=== PATIENT | female | born 1940 | race Caucasian/White ===

== ENCOUNTER 2018-12-11 12:17 | Inpatient (IN) ==
[2018-12-11] MEDS ORDERED: ONDANSETRON 4 MG/2 ML VIAL IV PRN (13:51)
[2018-12-11] MEDS ORDERED: ACETAMINOPHEN 325 MG TABLET PO PRN (13:51)
[2018-12-11 15:31] LABS: Basophils # 0.1 10*3/uL (0.0-0.2); Basophils % 0.8 % (0.0-0.8); Eosinophils # 0.1 10*3/uL (0.0-0.87); Eosinophils % 0.7 % (0.00-10.9); Hematocrit 37.4 VOL% (35.7-47.0); Hemoglobin 11.6 GM/DL (12.0-16.0); Immature Granulocytes % 0.5 %; Immature Granulocytes Absolute 0.04 #; Lymphocytes # 1.4 10*3/uL (1.4-4.0); Lymphocytes % 15.4 % (21.3-54.2); Mean Corpuscular Volume 93.7 FL (87-102); Mean Platelet Volume 9.4 FL (9.6-12.0); Monocytes % 7.1 % (1.7-12.7); Neutrophils % 75.5 % (38.7-73.9); Platelet Count 358 T/CUMM (130-400); Red Blood Count 3.99 MC/CUMM (3.8-5.5); Red Cell Distribution Width 14.8 % (9.3-17.3); White Blood Count 8.8 T/CUMM (4-12)
[2018-12-11] MEDS ORDERED: dilTIAZem Drip 125 MG/125 ML PREMIX IV ONE (15:41)
[2018-12-11 15:51] LABS: Albumin 3.8 G/DL (3.4-5.0); Bilirubin,Total 0.5 MG/DL (0.2-1.0); Calcium 9.1 MG/DL (8.5-10.1)
[2018-12-11] MEDS: SODIUM CHLORIDE 0.9% 1,000 ML IV SCH (16:00)
[2018-12-11] MEDS: dilTIAZem Drip 125 MG/125 ML PREMIX IV SCH (16:00)
[2018-12-11] MEDS ORDERED: FUROSEMIDE 40 MG/4 ML VIAL IV ONE (16:44)
[2018-12-11] MEDS ORDERED: POTASSIUM CHLORIDE 20 MEQ TABLET PO ONE (16:45)
[2018-12-11] MEDS: APIXABAN 5 MG TABLET PO SCH ×2 (17:06→22:19)
[2018-12-11] MEDS: SOTALOL 80 MG TABLET PO SCH ×2 (17:06→22:18)
[2018-12-11 17:50] LABS: Apearance,Urine CLEAR (Clear); Bilirubin,Urine Negative (Negative); Blood, Urine Negative (Negative); Glucose,Urine (UA) Negative (Negative); Ketones,Urine 5 mg/dL (Negative); Mucus,Urine Occasional /LPF (Occasional); Nitrite,Urine Negative (Negative); Protein,Urine Negative; Squamous Epithelial Cell,Urine Occasional /HPF (0-10); Urine Color Straw (Yellow); Urine Specific Gravity 1.008 (1.001-1.035); Urine Urobilinogen < 2.0 EU/DL (0.2-1.0)
[2018-12-11] MEDS ORDERED: METOPROLOL TARTRATE 5 MG/5 ML VIAL IV SCH (18:00)
[2018-12-11] MEDS: POTASSIUM CHLORIDE INJ 20 MEQ in SODIUM CHLORIDE 0.45% 1,000 ML IV SCH ×2 (19:03→21:01)
[2018-12-11] MEDS: DOCUSATE SODIUM 100 MG CAPSULE PO SCH (22:18)
[2018-12-11] MEDS: ASCORBIC ACID 500 MG TABLET PO SCH (22:19)
[2018-12-12] MEDS ORDERED: SODIUM CHLORIDE 0.9% 1,000 ML IV ONE (03:44)
[2018-12-12 04:10] LABS: Basophils # 0.1 10*3/uL (0.0-0.2); Basophils % 0.7 % (0.0-0.8); Eosinophils # 0.2 10*3/uL (0.0-0.87); Hematocrit 31.1 VOL% (35.7-47.0); Hemoglobin 9.9 GM/DL (12.0-16.0); Immature Granulocytes % 0.4 %; Immature Granulocytes Absolute 0.03 #; Lymphocytes # 1.7 10*3/uL (1.4-4.0); Lymphocytes % 22.5 % (21.3-54.2); Mean Corpuscular HGB Conc 31.8 GM/DL (32-36); Mean Corpuscular Volume 92.6 FL (87-102); Mean Platelet Volume 10.2 FL (9.6-12.0); Monocytes % 7.6 % (1.7-12.7); Neutrophils % 66.8 % (38.7-73.9); Platelet Count 285 T/CUMM (130-400); Red Blood Count 3.36 MC/CUMM (3.8-5.5); White Blood Count 7.6 T/CUMM (4-12)
[2018-12-12 04:35] LABS: Calcium 8.4 MG/DL (8.5-10.1)
[2018-12-12 04:36] LABS: Osmolality,Calculated 286.7 MOS/KG (273-304)
[2018-12-12 04:48] LABS: Albumin 2.8 G/DL (3.4-5.0); Bilirubin,Total 0.9 MG/DL (0.2-1.0); Calcium 8.3 MG/DL (8.5-10.1); Osmolality,Calculated 283.8 MOS/KG (273-304); Risk Ratio 3.67; Thyroid Stimulating Hormone 0.902 uIU/ml (0.358-3.74); Total Protein 5.6 G/DL (6.4-8.3); VLDL CHOLESTEROL 16.6 MG/DL
[2018-12-12] MEDS: ASCORBIC ACID 500 MG TABLET PO SCH ×2 (08:49→20:51)
[2018-12-12] MEDS: ASPIRIN CHEW 81 MG TABLET PO SCH (08:49)
[2018-12-12] MEDS: MULTIVITAMIN (BEROCCA) TABLET PO SCH (08:49)
[2018-12-12] MEDS: PANTOPRAZOLE 40 MG TABLET PO SCH (08:49)
[2018-12-12] MEDS: MULTIVITAMIN (CENTRUM) TABLET PO SCH (08:49)
[2018-12-12] MEDS: APIXABAN 5 MG TABLET PO SCH ×2 (08:49→20:51)
[2018-12-12] MEDS: DOCUSATE SODIUM 100 MG CAPSULE PO SCH ×2 (08:49→20:51)
[2018-12-12] MEDS: OMEGA 3 ACID ETHYL ESTERS 1 GM CAPSULE PO SCH (08:49)
[2018-12-12] MEDS ORDERED: ENALAPRIL 10 MG TABLET PO SCH (09:00)
[2018-12-12] MEDS ORDERED: BENAZEPRIL 10 MG TABLET PO SCH (09:00)
[2018-12-12] MEDS ORDERED: FUROSEMIDE 20 MG/2 ML VIAL IV SCH (09:00)
[2018-12-12] MEDS: POTASSIUM CHLORIDE INJ 20 MEQ in SODIUM CHLORIDE 0.45% 1,000 ML IV SCH (10:46)
[2018-12-12] MEDS: SODIUM CHLORIDE 0.9% 1,000 ML IV SCH (10:47)
[2018-12-12] MEDS: dilTIAZem Drip 125 MG/125 ML PREMIX IV SCH (16:03)
[2018-12-12] MEDS: SOTALOL 80 MG TABLET PO SCH (20:51)
[2018-12-12] MEDS ORDERED: SODIUM CHLOR 0.45% KCL 20 MEQ 20 MEQ/1,000 ML BAG IV SCH (21:56)
[2018-12-13 04:39] LABS: Basophils # 0.1 10*3/uL (0.0-0.2); Basophils % 0.7 % (0.0-0.8); Eosinophils # 0.1 10*3/uL (0.0-0.87); Eosinophils % 1.7 % (0.00-10.9); Hematocrit 34.8 VOL% (35.7-47.0); Immature Granulocytes % 0.4 %; Immature Granulocytes Absolute 0.03 #; Lymphocytes # 1.6 10*3/uL (1.4-4.0); Lymphocytes % 19.9 % (21.3-54.2); Mean Corpuscular HGB Conc 31.6 GM/DL (32-36); Mean Corpuscular Volume 92.1 FL (87-102); Mean Platelet Volume 9.5 FL (9.6-12.0); Neutrophils % 69.3 % (38.7-73.9); Platelet Count 298 T/CUMM (130-400); Red Blood Count 3.78 MC/CUMM (3.8-5.5); Red Cell Distribution Width 14.6 % (9.3-17.3); White Blood Count 8.1 T/CUMM (4-12)
[2018-12-13 04:58] LABS: Osmolality,Calculated 284.8 MOS/KG (273-304)
[2018-12-13 05:08] LABS: Albumin 3.3 G/DL (3.4-5.0); Bilirubin,Total 0.8 MG/DL (0.2-1.0); Calcium 8.9 MG/DL (8.5-10.1); Osmolality,Calculated 286.7 MOS/KG (273-304); Total Protein 6.1 G/DL (6.4-8.3)
[2018-12-13 07:52] VITALS: BP 120/74
[2018-12-13] MEDS ORDERED: FUROSEMIDE 20 MG TABLET PO SCH (09:00)
[2018-12-13] MEDS: MULTIVITAMIN (BEROCCA) TABLET PO SCH (09:19)
[2018-12-13] MEDS: SOTALOL 80 MG TABLET PO SCH (09:19)
[2018-12-13] MEDS: PANTOPRAZOLE 40 MG TABLET PO SCH (09:20)
[2018-12-13] MEDS: APIXABAN 5 MG TABLET PO SCH (09:20)
[2018-12-13] MEDS: ASCORBIC ACID 500 MG TABLET PO SCH (09:20)
[2018-12-13] MEDS: ASPIRIN CHEW 81 MG TABLET PO SCH (09:20)
[2018-12-13] MEDS: OMEGA 3 ACID ETHYL ESTERS 1 GM CAPSULE PO SCH (09:20)
[2018-12-13] MEDS: DOCUSATE SODIUM 100 MG CAPSULE PO SCH (09:20)
[2018-12-13] MEDS: MULTIVITAMIN (CENTRUM) TABLET PO SCH (09:20)
== END 2018-12-13 11:10 | disposition home or self-care (01) | DRG 308 ==
LOC: N.SDSINP → N.TELEN 14:51
PROVIDERS: ADMIT Family Medicine; ATTEND Family Medicine

== ENCOUNTER 2020-08-06 11:43 | Inpatient (IN) ==
[2020-08-06] MEDS ORDERED: DILTIAZEM 50 MG/10 ML VIAL IV STA (12:57)
[2020-08-06] MEDS ORDERED: FUROSEMIDE 40 MG/4 ML VIAL IV STA (12:57)
[2020-08-06 13:06] LABS: Basophils # 0.1 10*3/uL (0.0-0.2); Basophils % 0.9 % (0.0-0.8); Eosinophils % 0.1 % (0.00-10.9); Hematocrit 32.1 VOL% (35.7-47.0); Immature Granulocytes % 0.6 %; Immature Granulocytes Absolute 0.05 #; Lymphocytes # 1.2 10*3/uL (1.4-4.0); Lymphocytes % 12.9 % (21.3-54.2); Mean Corpuscular HGB Conc 31.2 GM/DL (32-36); Mean Corpuscular Volume 85.1 FL (87-102); Mean Platelet Volume 11.7 FL (9.6-12.0); Monocytes % 6.3 % (1.7-12.7); Neutrophils % 79.2 % (38.7-73.9); Platelet Count 359 T/CUMM (130-400); Red Blood Count 3.77 MC/CUMM (3.8-5.5); Red Cell Distribution Width 17.8 % (9.3-17.3)
[2020-08-06 13:15] LABS: INR 1.3; PT Patient Result 13.8 SECS (9.8-11.9); Partial Thromboplastin Time 32.3 SECS (23.9-33.8)
[2020-08-06 13:23] LABS: Albumin 3.4 G/DL (3.4-5.0); Bilirubin,Total 0.8 MG/DL (0.2-1.0); Calcium 8.9 MG/DL (8.5-10.1); Osmolality,Calculated 279.4 MOS/KG (273-304); Potassium 3.7 MMOL/L (3.5-5.1); Thyroid Stimulating Hormone 2.77 uIU/ml (0.358-3.74); Total Protein 6.4 G/DL (6.4-8.3)
[2020-08-06] MEDS: DILTIAZEM INJ 100 MG in SODIUM CHLORIDE 0.9% 100 ML IV SCH (14:19)
[2020-08-06 15:28] LABS: Barbiturates Screen,Urine Negative (Negative); Benzodiazepines Screen,Urine Negative (Negative); Cannabinoid Screen,Urine Negative (Negative); Opiate Screen,Urine Negative (Negative); Phencyclidine Screen,Urine Negative (Negative)
[2020-08-06] MEDS ORDERED: ONDANSETRON 4 MG/2 ML VIAL IV PRN (15:44)
[2020-08-06] MEDS ORDERED: ACETAMINOPHEN 325 MG TABLET PO PRN (15:44)
[2020-08-06] MEDS: SOTALOL 80 MG TABLET PO SCH (20:59)
[2020-08-06] MEDS: APIXABAN 5 MG TABLET PO SCH (20:59)
[2020-08-06] MEDS: DOCUSATE SODIUM 100 MG CAPSULE PO SCH (20:59)
[2020-08-07] MEDS: DILTIAZEM INJ 100 MG in SODIUM CHLORIDE 0.9% 100 ML IV SCH (04:21)
[2020-08-07 06:54] LABS: Basophils # 0.1 10*3/uL (0.0-0.2); Basophils % 0.9 % (0.0-0.8); Eosinophils # 0.1 10*3/uL (0.0-0.87); Hematocrit 28.5 VOL% (35.7-47.0); Hemoglobin 8.8 GM/DL (12.0-16.0); Immature Granulocytes % 0.2 %; Immature Granulocytes Absolute 0.02 #; Lymphocytes # 1.2 10*3/uL (1.4-4.0); Lymphocytes % 13.4 % (21.3-54.2); Mean Corpuscular HGB Conc 30.9 GM/DL (32-36); Mean Corpuscular Volume 84.1 FL (87-102); Mean Platelet Volume 11.4 FL (9.6-12.0); Neutrophils % 74.5 % (38.7-73.9); Platelet Count 294 T/CUMM (130-400); Red Blood Count 3.39 MC/CUMM (3.8-5.5); Red Cell Distribution Width 17.7 % (9.3-17.3); White Blood Count 8.9 T/CUMM (4-12)
[2020-08-07 07:23] LABS: Albumin 2.9 G/DL (3.4-5.0); Bilirubin,Total 0.9 MG/DL (0.2-1.0); Calcium 8.5 MG/DL (8.5-10.1); Osmolality,Calculated 282.1 MOS/KG (273-304); Potassium 2.8 MMOL/L (3.5-5.1); Risk Ratio 2.58; Total Protein 5.8 G/DL (6.4-8.3)
[2020-08-07] MEDS: SOTALOL 80 MG TABLET PO SCH (09:25)
[2020-08-07] MEDS: MULTIVITAMIN (BEROCCA) TABLET PO SCH (09:25)
[2020-08-07] MEDS: POTASSIUM CHLORIDE 20 MEQ TABLET PO SCH ×2 (09:25→21:33)
[2020-08-07] MEDS: APIXABAN 5 MG TABLET PO SCH ×2 (09:26→21:33)
[2020-08-07] MEDS: OMEGA 3 ACID ETHYL ESTERS 1 GM CAPSULE PO SCH (09:26)
[2020-08-07] MEDS: DOCUSATE SODIUM 100 MG CAPSULE PO SCH ×2 (09:26→21:34)
[2020-08-07] MEDS: CALCIUM (CARBONATE)/VITAMIN D 600 MG-400 UNIT TABLET PO SCH (09:26)
[2020-08-07] MEDS: ENALAPRIL 20 MG TABLET PO SCH (09:26)
[2020-08-07] MEDS: POTASSIUM CHLORIDE RIDER 10 MEQ in PREMIX 1 EACH IV SCH ×4 (09:26→15:28)
[2020-08-07] MEDS: PANTOPRAZOLE 40 MG TABLET PO SCH (09:26)
[2020-08-07] MEDS: MULTIVITAMIN (CENTRUM) TABLET PO SCH (09:26)
[2020-08-07] MEDS: ALBUTEROL/IPRATROPIUM 3 ML NEB RESP TX SCH ×3 (11:08→19:34)
[2020-08-07] MEDS: FUROSEMIDE 40 MG/4 ML VIAL IV SCH (11:20)
[2020-08-07] MEDS: SERTRALINE 25 MG TABLET PO SCH ×2 (15:10→21:33)
[2020-08-07] MEDS ORDERED: POTASSIUM CHLORIDE RIDER 10 MEQ in PREMIX 1 EACH IV SCH (15:30)
[2020-08-07] MEDS ORDERED: POTASSIUM CHLORIDE 20 MEQ/15 ML UDCUP PO ONE (21:02)
[2020-08-07] MEDS: BISOPROLOL 5 MG TABLET PO SCH (21:41)
[2020-08-07] MEDS: AMIODARONE 200 MG TABLET PO SCH (21:41)
[2020-08-08] MEDS: ALBUTEROL/IPRATROPIUM 3 ML NEB RESP TX SCH ×4 (00:25→19:33)
[2020-08-08 05:59] LABS: Basophils # 0.1 10*3/uL (0.0-0.2); Basophils % 0.9 % (0.0-0.8); Eosinophils % 0.4 % (0.00-10.9); Hematocrit 31.2 VOL% (35.7-47.0); Hemoglobin 9.9 GM/DL (12.0-16.0); Immature Granulocytes % 0.4 %; Immature Granulocytes Absolute 0.04 #; Lymphocytes % 8.6 % (21.3-54.2); Mean Corpuscular HGB Conc 31.7 GM/DL (32-36); Mean Corpuscular Volume 81.9 FL (87-102); Mean Platelet Volume 11.5 FL (9.6-12.0); Monocytes % 8.5 % (1.7-12.7); Neutrophils % 81.2 % (38.7-73.9); Platelet Count 305 T/CUMM (130-400); Red Blood Count 3.81 MC/CUMM (3.8-5.5); Red Cell Distribution Width 17.8 % (9.3-17.3); White Blood Count 11.3 T/CUMM (4-12)
[2020-08-08 06:28] LABS: Albumin 3.2 G/DL (3.4-5.0); Osmolality,Calculated 283.1 MOS/KG (273-304); Potassium 3.8 MMOL/L (3.5-5.1); Total Protein 6.4 G/DL (6.4-8.3)
[2020-08-08] MEDS ORDERED: HALOPERIDOL 5 MG/ML AMP IV ONE ×2 (07:40→09:05)
[2020-08-08] MEDS: AMIODARONE 200 MG TABLET PO SCH ×2 (09:46→21:58)
[2020-08-08] MEDS: APIXABAN 5 MG TABLET PO SCH ×2 (09:46→21:58)
[2020-08-08] MEDS: BISOPROLOL 5 MG TABLET PO SCH ×2 (09:46→21:58)
[2020-08-08] MEDS: ENALAPRIL 20 MG TABLET PO SCH (09:47)
[2020-08-08] MEDS: FUROSEMIDE 40 MG/4 ML VIAL IV SCH (09:47)
[2020-08-08] MEDS: MULTIVITAMIN (BEROCCA) TABLET PO SCH (10:07)
[2020-08-08] MEDS: POTASSIUM CHLORIDE 20 MEQ TABLET PO SCH ×2 (10:08→21:58)
[2020-08-08] MEDS: PANTOPRAZOLE 40 MG TABLET PO SCH (10:08)
[2020-08-08] MEDS: CALCIUM (CARBONATE)/VITAMIN D 600 MG-400 UNIT TABLET PO SCH (10:08)
[2020-08-08] MEDS: DOCUSATE SODIUM 100 MG CAPSULE PO SCH ×2 (10:08→21:58)
[2020-08-08] MEDS ORDERED: BISOPROLOL 5 MG TABLET PO SCH (10:08)
[2020-08-08] MEDS: OMEGA 3 ACID ETHYL ESTERS 1 GM CAPSULE PO SCH (10:08)
[2020-08-08] MEDS: CHOLECALCIFEROL 1,000 UNIT TABLET PO SCH (10:08)
[2020-08-08] MEDS: MULTIVITAMIN (CENTRUM) TABLET PO SCH (10:08)
[2020-08-08] MEDS ORDERED: BISOPROLOL 5 MG TABLET PO ONE (10:08)
[2020-08-08] MEDS: DILTIAZEM INJ 100 MG in SODIUM CHLORIDE 0.9% 100 ML IV SCH (14:59)
[2020-08-09] MEDS: ALBUTEROL/IPRATROPIUM 3 ML NEB RESP TX SCH ×4 (00:25→19:32)
[2020-08-09] MEDS: DILTIAZEM INJ 100 MG in SODIUM CHLORIDE 0.9% 100 ML IV SCH ×2 (04:06→14:09)
[2020-08-09 05:56] LABS: Basophils # 0.1 10*3/uL (0.0-0.2); Basophils % 0.5 % (0.0-0.8); Eosinophils % 0.1 % (0.00-10.9); Hematocrit 30.8 VOL% (35.7-47.0); Hemoglobin 9.5 GM/DL (12.0-16.0); Immature Granulocytes % 0.6 %; Immature Granulocytes Absolute 0.09 #; Lymphocytes # 1.3 10*3/uL (1.4-4.0); Lymphocytes % 8.7 % (21.3-54.2); Mean Corpuscular HGB Conc 30.8 GM/DL (32-36); Mean Corpuscular Volume 82.8 FL (87-102); Mean Platelet Volume 11.6 FL (9.6-12.0); Monocytes % 7.2 % (1.7-12.7); Neutrophils % 82.9 % (38.7-73.9); Platelet Count 313 T/CUMM (130-400); Red Blood Count 3.72 MC/CUMM (3.8-5.5); Red Cell Distribution Width 17.7 % (9.3-17.3); White Blood Count 15.1 T/CUMM (4-12)
[2020-08-09 06:29] LABS: Calcium 8.7 MG/DL (8.5-10.1); Osmolality,Calculated 273.8 MOS/KG (273-304); Potassium 3.3 MMOL/L (3.5-5.1)
[2020-08-09] MEDS: DOCUSATE SODIUM 100 MG CAPSULE PO SCH ×2 (09:33→20:21)
[2020-08-09] MEDS: CHOLECALCIFEROL 1,000 UNIT TABLET PO SCH (09:34)
[2020-08-09] MEDS: MULTIVITAMIN (BEROCCA) TABLET PO SCH (09:34)
[2020-08-09] MEDS: APIXABAN 5 MG TABLET PO SCH ×2 (09:34→20:21)
[2020-08-09] MEDS ORDERED: MAGNESIUM SULF RIDER 4 GM in PREMIX 1 EACH IV ONE (09:34)
[2020-08-09] MEDS: BISOPROLOL 5 MG TABLET PO SCH ×2 (09:35→20:21)
[2020-08-09] MEDS: ENALAPRIL 20 MG TABLET PO SCH (09:35)
[2020-08-09] MEDS: AMIODARONE 200 MG TABLET PO SCH ×2 (09:36→20:21)
[2020-08-09] MEDS: OMEGA 3 ACID ETHYL ESTERS 1 GM CAPSULE PO SCH (09:36)
[2020-08-09] MEDS: CALCIUM (CARBONATE)/VITAMIN D 600 MG-400 UNIT TABLET PO SCH (09:36)
[2020-08-09] MEDS: PANTOPRAZOLE 40 MG TABLET PO SCH (09:36)
[2020-08-09] MEDS: POTASSIUM CHLORIDE 20 MEQ TABLET PO SCH ×2 (09:36→20:21)
[2020-08-09] MEDS: FUROSEMIDE 40 MG/4 ML VIAL IV SCH (09:38)
[2020-08-09] MEDS: FUROSEMIDE 40 MG TABLET PO SCH (11:30)
[2020-08-09] MEDS: DILTIAZEM 30 MG TABLET PO SCH ×3 (12:58→20:21)
[2020-08-09 14:35] LABS: Bilirubin,Urine Negative (Negative); Blood, Urine Large mg/dL (Negative); Glucose,Urine (UA) Negative (Negative); Ketones,Urine Negative (Negative); Mucus,Urine Occasional /LPF (Occasional); Nitrite,Urine Negative (Negative); Protein,Urine Negative; RBC,Urine 91 /HPF (0-4); Urine Appearance CLEAR (Clear); Urine Color Yellow (Yellow); Urine Specific Gravity 1.005 (1.001-1.035); Urine Urobilinogen < 2.0 EU/DL (0.2-1.0); WBC,Urine 3 /HPF (0-6)
[2020-08-09] MEDS: POTASSIUM CHLORIDE 20 MEQ TABLET PO PRN ×2 (16:48→18:25)
[2020-08-09] MEDS: MULTIVITAMIN (CENTRUM) TABLET PO SCH (17:51)
[2020-08-10] MEDS: ALBUTEROL/IPRATROPIUM 3 ML NEB RESP TX SCH ×4 (00:36→19:39)
[2020-08-10 05:34] LABS: Basophils # 0.1 10*3/uL (0.0-0.2); Basophils % 0.5 % (0.0-0.8); Eosinophils # 0.1 10*3/uL (0.0-0.87); Eosinophils % 1.3 % (0.00-10.9); Hemoglobin 9.4 GM/DL (12.0-16.0); Immature Granulocytes % 0.4 %; Immature Granulocytes Absolute 0.04 #; Lymphocytes # 1.3 10*3/uL (1.4-4.0); Lymphocytes % 13.1 % (21.3-54.2); Mean Corpuscular HGB Conc 31.3 GM/DL (32-36); Mean Corpuscular Volume 82.6 FL (87-102); Mean Platelet Volume 11.6 FL (9.6-12.0); Monocytes % 8.9 % (1.7-12.7); Neutrophils % 75.8 % (38.7-73.9); Platelet Count 291 T/CUMM (130-400); Red Blood Count 3.63 MC/CUMM (3.8-5.5); Red Cell Distribution Width 17.5 % (9.3-17.3); White Blood Count 10.1 T/CUMM (4-12)
[2020-08-10 06:13] LABS: Albumin 2.9 G/DL (3.4-5.0); Bilirubin,Total 0.9 MG/DL (0.2-1.0); Calcium 8.8 MG/DL (8.5-10.1); Osmolality,Calculated 279.3 MOS/KG (273-304); Potassium 3.7 MMOL/L (3.5-5.1)
[2020-08-10] MEDS: CHOLECALCIFEROL 1,000 UNIT TABLET PO SCH (08:01)
[2020-08-10] MEDS: AMIODARONE 200 MG TABLET PO SCH ×2 (08:03→20:56)
[2020-08-10] MEDS: MULTIVITAMIN (CENTRUM) TABLET PO SCH (08:03)
[2020-08-10] MEDS: DOCUSATE SODIUM 100 MG CAPSULE PO SCH ×2 (08:04→20:55)
[2020-08-10] MEDS: FUROSEMIDE 40 MG TABLET PO SCH (08:04)
[2020-08-10] MEDS: APIXABAN 5 MG TABLET PO SCH ×2 (08:04→20:56)
[2020-08-10] MEDS: POTASSIUM CHLORIDE 20 MEQ TABLET PO SCH ×2 (08:04→20:54)
[2020-08-10] MEDS: BISOPROLOL 5 MG TABLET PO SCH ×2 (08:04→20:55)
[2020-08-10] MEDS: PANTOPRAZOLE 40 MG TABLET PO SCH (08:04)
[2020-08-10] MEDS: DILTIAZEM 30 MG TABLET PO SCH ×4 (08:04→20:55)
[2020-08-10] MEDS: MULTIVITAMIN (BEROCCA) TABLET PO SCH (08:04)
[2020-08-10] MEDS: CALCIUM (CARBONATE)/VITAMIN D 600 MG-400 UNIT TABLET PO SCH (08:09)
[2020-08-10] MEDS: OMEGA 3 ACID ETHYL ESTERS 1 GM CAPSULE PO SCH (08:09)
[2020-08-10] MEDS: ENALAPRIL 20 MG TABLET PO SCH (08:10)
[2020-08-10] MEDS: DILTIAZEM INJ 100 MG in SODIUM CHLORIDE 0.9% 100 ML IV SCH (12:49)
[2020-08-10] MEDS ORDERED: ENALAPRIL 10 MG TABLET PO SCH (16:55)
[2020-08-11] MEDS: ALBUTEROL/IPRATROPIUM 3 ML NEB RESP TX SCH ×4 (00:18→18:57)
[2020-08-11 05:55] LABS: Basophils # 0.1 10*3/uL (0.0-0.2); Basophils % 1.1 % (0.0-0.8); Eosinophils # 0.3 10*3/uL (0.0-0.87); Eosinophils % 2.8 % (0.00-10.9); Hematocrit 31.7 VOL% (35.7-47.0); Hemoglobin 9.7 GM/DL (12.0-16.0); Immature Granulocytes % 0.3 %; Immature Granulocytes Absolute 0.03 #; Lymphocytes # 1.5 10*3/uL (1.4-4.0); Lymphocytes % 15.6 % (21.3-54.2); Mean Corpuscular HGB Conc 30.6 GM/DL (32-36); Mean Corpuscular Volume 83.6 FL (87-102); Mean Platelet Volume 11.7 FL (9.6-12.0); Neutrophils % 72.2 % (38.7-73.9); Platelet Count 277 T/CUMM (130-400); Red Blood Count 3.79 MC/CUMM (3.8-5.5); Red Cell Distribution Width 17.7 % (9.3-17.3); White Blood Count 9.8 T/CUMM (4-12)
[2020-08-11 06:17] LABS: Albumin 2.7 G/DL (3.4-5.0); Bilirubin,Total 0.5 MG/DL (0.2-1.0); Calcium 8.8 MG/DL (8.5-10.1); Osmolality,Calculated 280.4 MOS/KG (273-304); Potassium 3.9 MMOL/L (3.5-5.1); Total Protein 5.8 G/DL (6.4-8.3)
[2020-08-11] MEDS: BISOPROLOL 5 MG TABLET PO SCH ×2 (08:57→21:17)
[2020-08-11] MEDS: CALCIUM (CARBONATE)/VITAMIN D 600 MG-400 UNIT TABLET PO SCH (08:57)
[2020-08-11] MEDS: AMIODARONE 200 MG TABLET PO SCH ×2 (08:57→21:17)
[2020-08-11] MEDS: OMEGA 3 ACID ETHYL ESTERS 1 GM CAPSULE PO SCH (08:57)
[2020-08-11] MEDS: CHOLECALCIFEROL 1,000 UNIT TABLET PO SCH (08:57)
[2020-08-11] MEDS: POTASSIUM CHLORIDE 20 MEQ TABLET PO SCH ×2 (08:57→21:17)
[2020-08-11] MEDS: MULTIVITAMIN (BEROCCA) TABLET PO SCH (08:57)
[2020-08-11] MEDS: PANTOPRAZOLE 40 MG TABLET PO SCH (08:58)
[2020-08-11] MEDS: FUROSEMIDE 40 MG TABLET PO SCH (08:58)
[2020-08-11] MEDS: DOCUSATE SODIUM 100 MG CAPSULE PO SCH ×2 (08:58→21:17)
[2020-08-11] MEDS: APIXABAN 5 MG TABLET PO SCH ×2 (08:59→21:17)
[2020-08-11] MEDS: MULTIVITAMIN (CENTRUM) TABLET PO SCH (08:59)
[2020-08-11] MEDS ORDERED: DILTIAZEM CD 180 MG CAPSULE PO SCH (09:00)
[2020-08-12] MEDS: ALBUTEROL/IPRATROPIUM 3 ML NEB RESP TX SCH ×2 (01:33→07:18)
[2020-08-12 06:10] LABS: Basophils # 0.1 10*3/uL (0.0-0.2); Basophils % 0.4 % (0.0-0.8); Eosinophils # 0.3 10*3/uL (0.0-0.87); Eosinophils % 2.1 % (0.00-10.9); Hematocrit 34.1 VOL% (35.7-47.0); Hemoglobin 10.3 GM/DL (12.0-16.0); Immature Granulocytes % 0.4 %; Immature Granulocytes Absolute 0.06 #; Lymphocytes % 13.9 % (21.3-54.2); Mean Corpuscular HGB Conc 30.2 GM/DL (32-36); Mean Corpuscular Volume 83.8 FL (87-102); Mean Platelet Volume 11.8 FL (9.6-12.0); Monocytes % 5.5 % (1.7-12.7); Neutrophils % 77.7 % (38.7-73.9); Platelet Count 337 T/CUMM (130-400); Red Blood Count 4.07 MC/CUMM (3.8-5.5); Red Cell Distribution Width 17.8 % (9.3-17.3)
[2020-08-12 06:38] LABS: Osmolality,Calculated 278.5 MOS/KG (273-304); Potassium 4.3 MMOL/L (3.5-5.1)
[2020-08-12] MEDS ORDERED: DILTIAZEM CD 120 MG CAPSULE PO SCH (08:50)
[2020-08-12] MEDS ORDERED: DIGOXIN 0.25 MG TABLET PO ONE (08:53)
[2020-08-12] MEDS: MULTIVITAMIN (BEROCCA) TABLET PO SCH (09:45)
[2020-08-12] MEDS: MULTIVITAMIN (CENTRUM) TABLET PO SCH (09:45)
[2020-08-12] MEDS: CHOLECALCIFEROL 1,000 UNIT TABLET PO SCH (09:45)
[2020-08-12] MEDS: FUROSEMIDE 40 MG TABLET PO SCH (09:46)
[2020-08-12] MEDS: APIXABAN 5 MG TABLET PO SCH (09:46)
[2020-08-12] MEDS: PANTOPRAZOLE 40 MG TABLET PO SCH (09:46)
[2020-08-12] MEDS: OMEGA 3 ACID ETHYL ESTERS 1 GM CAPSULE PO SCH (09:46)
[2020-08-12] MEDS: POTASSIUM CHLORIDE 20 MEQ TABLET PO SCH (09:46)
[2020-08-12] MEDS: DOCUSATE SODIUM 100 MG CAPSULE PO SCH (09:46)
[2020-08-12] MEDS: BISOPROLOL 5 MG TABLET PO SCH (09:46)
[2020-08-12] MEDS: AMIODARONE 200 MG TABLET PO SCH (09:46)
[2020-08-12] MEDS: CALCIUM (CARBONATE)/VITAMIN D 600 MG-400 UNIT TABLET PO SCH (09:49)
[2020-08-12 12:09] VITALS: BP 105/61
[2020-08-12] MEDS ORDERED: DIGOXIN 0.125 MG TABLET PO SCH (13:00)
== END 2020-08-12 15:40 | disposition home health service (06) | DRG 291 ==
LOC: N.ED 11:43 → N.TELES 14:39
PROVIDERS: ADMIT Family Medicine; ATTEND Family Medicine

== ENCOUNTER 2020-08-25 10:33 | Inpatient (IN) ==
[2020-08-25] MEDS ORDERED: propofoL 200 MG/20 ML VIAL IV ONE ×2 (11:29→13:11)
[2020-08-25] MEDS ORDERED: LIDOCAINE 2% 5 ML VIAL ONE ×2 (11:29→13:11)
[2020-08-25] MEDS: SODIUM CHLORIDE 0.9% 1,000 ML IV SCH (12:00)
[2020-08-25] MEDS ORDERED: ONDANSETRON 4 MG/2 ML VIAL IV PRN (13:32)
[2020-08-25] MEDS ORDERED: ALUMINUM/MAGNES/SIMETH MAX STR 30 ML UDCUP PO PRN (13:32)
[2020-08-25] MEDS ORDERED: MAGNESIUM SULF RIDER 4 GM in PREMIX 1 EACH IV PRN (13:32)
[2020-08-25] MEDS ORDERED: MAGNESIUM SULF RIDER 2 GM in PREMIX 1 EACH IV PRN (13:32)
[2020-08-25] MEDS ORDERED: AMIODARONE 200 MG TABLET PO SCH (21:00)
[2020-08-25] MEDS: MULTIVITAMIN (OCUVITE) TABLET PO SCH (21:45)
[2020-08-25] MEDS: APIXABAN 5 MG TABLET PO SCH (21:45)
[2020-08-26] MEDS ORDERED: CALCIUM CARBONATE PO SCH (09:00)
[2020-08-26] MEDS ORDERED: ZINC OXIDE PO SCH (09:00)
[2020-08-26] MEDS ORDERED: MAGNESIUM OXIDE PO SCH (09:00)
[2020-08-26] MEDS: ATORVASTATIN 40 MG TABLET PO SCH (09:19)
[2020-08-26] MEDS: OMEGA 3 ACID ETHYL ESTERS 1 GM CAPSULE PO SCH (09:19)
[2020-08-26] MEDS: MULTIVITAMIN (CENTRUM) TABLET PO SCH (09:19)
[2020-08-26] MEDS: amLODIPine 10 MG TABLET PO SCH (09:19)
[2020-08-26] MEDS: APIXABAN 5 MG TABLET PO SCH ×2 (09:20→22:15)
[2020-08-26] MEDS: PANTOPRAZOLE 40 MG TABLET PO SCH (09:20)
[2020-08-26] MEDS: MULTIVITAMIN (BEROCCA) TABLET PO SCH (09:22)
[2020-08-26] MEDS: CHOLECALCIFEROL 1,000 UNIT TABLET PO SCH (09:22)
[2020-08-26] MEDS: MULTIVITAMIN (OCUVITE) TABLET PO SCH ×2 (09:22→22:15)
[2020-08-26] MEDS: AMIODARONE 200 MG TABLET PO SCH (09:23)
[2020-08-26] MEDS: SODIUM CHLORIDE 0.9% 1,000 ML IV SCH (10:02)
[2020-08-27] MEDS: ZALEPLON 5 MG CAPSULE PO PRN (00:35)
[2020-08-27 07:03] LABS: Basophils # 0.1 10*3/uL (0.0-0.2); Basophils % 0.9 % (0.0-0.8); Eosinophils # 0.1 10*3/uL (0.0-0.87); Eosinophils % 0.9 % (0.00-10.9); Hematocrit 33.4 VOL% (35.7-47.0); Hemoglobin 10.2 GM/DL (12.0-16.0); Immature Granulocytes % 0.4 %; Immature Granulocytes Absolute 0.04 #; Lymphocytes # 1.5 10*3/uL (1.4-4.0); Lymphocytes % 14.6 % (21.3-54.2); Mean Corpuscular HGB Conc 30.5 GM/DL (32-36); Mean Corpuscular Volume 85.2 FL (87-102); Mean Platelet Volume 9.9 FL (9.6-12.0); Monocytes % 7.3 % (1.7-12.7); Neutrophils % 75.9 % (38.7-73.9); Platelet Count 347 T/CUMM (130-400); Red Blood Count 3.92 MC/CUMM (3.8-5.5); Red Cell Distribution Width 19.5 % (9.3-17.3); White Blood Count 10.2 T/CUMM (4-12)
[2020-08-27 07:14] LABS: INR 1.1; PT Patient Result 11.8 SECS (9.8-11.9)
[2020-08-27 07:25] LABS: Osmolality,Calculated 278.4 MOS/KG (273-304); Potassium 3.2 MMOL/L (3.5-5.1)
[2020-08-27] MEDS: MULTIVITAMIN (OCUVITE) TABLET PO SCH ×2 (08:53→21:40)
[2020-08-27] MEDS: CHOLECALCIFEROL 1,000 UNIT TABLET PO SCH (08:53)
[2020-08-27] MEDS: ATORVASTATIN 40 MG TABLET PO SCH (08:53)
[2020-08-27] MEDS: OMEGA 3 ACID ETHYL ESTERS 1 GM CAPSULE PO SCH (08:53)
[2020-08-27] MEDS: MULTIVITAMIN (BEROCCA) TABLET PO SCH (08:53)
[2020-08-27] MEDS: PANTOPRAZOLE 40 MG TABLET PO SCH (08:53)
[2020-08-27] MEDS: AMIODARONE 200 MG TABLET PO SCH (08:54)
[2020-08-27] MEDS: MULTIVITAMIN (CENTRUM) TABLET PO SCH (08:54)
[2020-08-27] MEDS: amLODIPine 10 MG TABLET PO SCH (08:54)
[2020-08-28] MEDS ORDERED: POTASSIUM CHLORIDE 20 MEQ TABLET PO ONE (01:38)
[2020-08-28] MEDS ORDERED: diphenhydrAMINE CAP 25 MG CAPSULE PO ONE (06:00)
[2020-08-28] MEDS ORDERED: ceFAZolin 1,000 MG in SYRINGE 1 EACH IV ONE (06:00)
[2020-08-28] MEDS ORDERED: ceFAZolin 1,000 MG VIAL IRRIG ONE (06:00)
[2020-08-28] MEDS ORDERED: DIAZEPAM 5 MG TABLET PO ONE (06:00)
[2020-08-28] MEDS ORDERED: MIDAZOLAM 2 MG/2 ML VIAL ONE ×3 (07:09→08:14)
[2020-08-28] MEDS ORDERED: LIDOCAINE 1% 20 ML VIAL ONE (07:09)
[2020-08-28] MEDS ORDERED: ceFAZolin 1,000 MG VIAL ONE ×2 (07:09)
[2020-08-28] MEDS ORDERED: fentaNYL 100 MCG/2 ML VIAL ONE (07:09)
[2020-08-28] MEDS ORDERED: TISSUE ADHESIVE 1 EACH APPLICATOR TOP ONE (07:09)
[2020-08-28] MEDS ORDERED: AMIODARONE 150 MG/3 ML VIAL ONE (07:31)
[2020-08-28] MEDS ORDERED: PROMETHAZINE 25 MG/1 ML VIAL ONE (08:08)
[2020-08-28] MEDS ORDERED: HYDROmorphone 2 MG/1 ML VIAL IV ONE (10:06)
[2020-08-28] MEDS: AMIODARONE 200 MG TABLET PO SCH (11:35)
[2020-08-28] MEDS: SODIUM CHLORIDE 0.9% 1,000 ML IV SCH ×2 (11:37)
[2020-08-28] MEDS: MULTIVITAMIN (CENTRUM) TABLET PO SCH (11:39)
[2020-08-28] MEDS: MULTIVITAMIN (BEROCCA) TABLET PO SCH (11:39)
[2020-08-28] MEDS: PANTOPRAZOLE 40 MG TABLET PO SCH (11:40)
[2020-08-28] MEDS: MULTIVITAMIN (OCUVITE) TABLET PO SCH ×2 (11:40→23:30)
[2020-08-28] MEDS: ATORVASTATIN 40 MG TABLET PO SCH (11:40)
[2020-08-28] MEDS: OMEGA 3 ACID ETHYL ESTERS 1 GM CAPSULE PO SCH (11:40)
[2020-08-28] MEDS: amLODIPine 10 MG TABLET PO SCH (11:40)
[2020-08-28] MEDS: CHOLECALCIFEROL 1,000 UNIT TABLET PO SCH (11:41)
[2020-08-28] MEDS ORDERED: ACETAMINOPHEN 325 MG TABLET PO PRN (23:23)
[2020-08-29 05:36] LABS: Basophils # 0.1 10*3/uL (0.0-0.2); Basophils % 0.5 % (0.0-0.8); Eosinophils # 0.1 10*3/uL (0.0-0.87); Eosinophils % 0.6 % (0.00-10.9); Hematocrit 38.5 VOL% (35.7-47.0); Hemoglobin 11.8 GM/DL (12.0-16.0); Immature Granulocytes % 0.4 %; Immature Granulocytes Absolute 0.05 #; Lymphocytes # 1.3 10*3/uL (1.4-4.0); Lymphocytes % 10.3 % (21.3-54.2); Mean Corpuscular HGB Conc 30.6 GM/DL (32-36); Mean Corpuscular Volume 83.3 FL (87-102); Mean Platelet Volume 10.4 FL (9.6-12.0); Monocytes % 8.8 % (1.7-12.7); Neutrophils % 79.4 % (38.7-73.9); Platelet Count 334 T/CUMM (130-400); Red Blood Count 4.62 MC/CUMM (3.8-5.5); Red Cell Distribution Width 20.1 % (9.3-17.3); White Blood Count 12.3 T/CUMM (4-12)
[2020-08-29 06:01] LABS: Calcium 9.2 MG/DL (8.5-10.1); Osmolality,Calculated 281.3 MOS/KG (273-304); Potassium 4.1 MMOL/L (3.5-5.1)
[2020-08-29] MEDS: SODIUM CHLORIDE 0.9% 1,000 ML IV SCH ×2 (08:50)
[2020-08-29] MEDS: DILTIAZEM CD 120 MG CAPSULE PO SCH (08:54)
[2020-08-29] MEDS: MULTIVITAMIN (BEROCCA) TABLET PO SCH (08:54)
[2020-08-29] MEDS: MULTIVITAMIN (CENTRUM) TABLET PO SCH (08:54)
[2020-08-29] MEDS: PANTOPRAZOLE 40 MG TABLET PO SCH (08:55)
[2020-08-29] MEDS: ATORVASTATIN 40 MG TABLET PO SCH (08:55)
[2020-08-29] MEDS: OMEGA 3 ACID ETHYL ESTERS 1 GM CAPSULE PO SCH (08:55)
[2020-08-29] MEDS: amLODIPine 10 MG TABLET PO SCH (08:55)
[2020-08-29] MEDS: MULTIVITAMIN (OCUVITE) TABLET PO SCH ×2 (08:55→20:44)
[2020-08-29] MEDS: AMIODARONE 200 MG TABLET PO SCH (08:55)
[2020-08-29] MEDS: CHOLECALCIFEROL 1,000 UNIT TABLET PO SCH (08:55)
[2020-08-30 05:59] LABS: Basophils # 0.1 10*3/uL (0.0-0.2); Basophils % 0.6 % (0.0-0.8); Eosinophils # 0.1 10*3/uL (0.0-0.87); Eosinophils % 1.3 % (0.00-10.9); Hematocrit 35.2 VOL% (35.7-47.0); Hemoglobin 10.9 GM/DL (12.0-16.0); Immature Granulocytes % 0.5 %; Immature Granulocytes Absolute 0.05 #; Lymphocytes # 1.4 10*3/uL (1.4-4.0); Lymphocytes % 13.4 % (21.3-54.2); Mean Corpuscular Volume 83.2 FL (87-102); Mean Platelet Volume 10.8 FL (9.6-12.0); Monocytes % 11.8 % (1.7-12.7); Neutrophils % 72.4 % (38.7-73.9); Platelet Count 296 T/CUMM (130-400); Red Blood Count 4.23 MC/CUMM (3.8-5.5); White Blood Count 10.2 T/CUMM (4-12)
[2020-08-30 06:24] LABS: Calcium 8.9 MG/DL (8.5-10.1); Osmolality,Calculated 279.5 MOS/KG (273-304); Potassium 3.5 MMOL/L (3.5-5.1)
[2020-08-30] MEDS: MULTIVITAMIN (OCUVITE) TABLET PO SCH ×2 (09:21→21:02)
[2020-08-30] MEDS: APIXABAN 5 MG TABLET PO SCH ×2 (09:21→21:02)
[2020-08-30] MEDS: MULTIVITAMIN (BEROCCA) TABLET PO SCH (09:21)
[2020-08-30] MEDS: PANTOPRAZOLE 40 MG TABLET PO SCH (09:21)
[2020-08-30] MEDS: CHOLECALCIFEROL 1,000 UNIT TABLET PO SCH (09:21)
[2020-08-30] MEDS: OMEGA 3 ACID ETHYL ESTERS 1 GM CAPSULE PO SCH (09:21)
[2020-08-30] MEDS: DILTIAZEM CD 120 MG CAPSULE PO SCH (09:21)
[2020-08-30] MEDS: MULTIVITAMIN (CENTRUM) TABLET PO SCH (09:22)
[2020-08-30] MEDS: ATORVASTATIN 40 MG TABLET PO SCH (09:22)
[2020-08-30] MEDS: amLODIPine 10 MG TABLET PO SCH (09:22)
[2020-08-30] MEDS: AMIODARONE 200 MG TABLET PO SCH (09:23)
[2020-08-31 05:51] LABS: Calcium 8.9 MG/DL (8.5-10.1); Osmolality,Calculated 275.7 MOS/KG (273-304); Potassium 3.6 MMOL/L (3.5-5.1)
[2020-08-31 05:52] LABS: Basophils % 0.4 % (0.0-0.8); Eosinophils # 0.3 10*3/uL (0.0-0.87); Eosinophils % 3.2 % (0.00-10.9); Hematocrit 34.3 VOL% (35.7-47.0); Hemoglobin 10.6 GM/DL (12.0-16.0); Immature Granulocytes % 0.2 %; Immature Granulocytes Absolute 0.02 #; Lymphocytes # 1.3 10*3/uL (1.4-4.0); Lymphocytes % 14.2 % (21.3-54.2); Mean Corpuscular HGB Conc 30.9 GM/DL (32-36); Mean Corpuscular Volume 84.3 FL (87-102); Mean Platelet Volume 10.5 FL (9.6-12.0); Monocytes % 8.6 % (1.7-12.7); Neutrophils % 73.4 % (38.7-73.9); Platelet Count 281 T/CUMM (130-400); Red Blood Count 4.07 MC/CUMM (3.8-5.5); White Blood Count 9.3 T/CUMM (4-12)
[2020-08-31] MEDS: OMEGA 3 ACID ETHYL ESTERS 1 GM CAPSULE PO SCH (09:08)
[2020-08-31] MEDS: DILTIAZEM CD 120 MG CAPSULE PO SCH (09:08)
[2020-08-31] MEDS: APIXABAN 5 MG TABLET PO SCH ×2 (09:09→20:39)
[2020-08-31] MEDS: MULTIVITAMIN (BEROCCA) TABLET PO SCH (09:09)
[2020-08-31] MEDS: amLODIPine 10 MG TABLET PO SCH (09:09)
[2020-08-31] MEDS: CHOLECALCIFEROL 1,000 UNIT TABLET PO SCH (09:09)
[2020-08-31] MEDS: AMIODARONE 200 MG TABLET PO SCH (09:09)
[2020-08-31] MEDS: PANTOPRAZOLE 40 MG TABLET PO SCH (09:09)
[2020-08-31] MEDS: MULTIVITAMIN (OCUVITE) TABLET PO SCH ×2 (09:09→20:39)
[2020-08-31] MEDS: ATORVASTATIN 40 MG TABLET PO SCH (09:09)
[2020-08-31] MEDS: MULTIVITAMIN (CENTRUM) TABLET PO SCH (09:10)
[2020-09-01 06:01] LABS: Basophils # 0.1 10*3/uL (0.0-0.2); Basophils % 0.8 % (0.0-0.8); Eosinophils # 0.4 10*3/uL (0.0-0.87); Eosinophils % 4.8 % (0.00-10.9); Hemoglobin 10.1 GM/DL (12.0-16.0); Immature Granulocytes % 0.4 %; Immature Granulocytes Absolute 0.03 #; Lymphocytes # 1.2 10*3/uL (1.4-4.0); Lymphocytes % 14.4 % (21.3-54.2); Mean Corpuscular HGB Conc 30.6 GM/DL (32-36); Mean Corpuscular Volume 84.6 FL (87-102); Mean Platelet Volume 11.1 FL (9.6-12.0); Neutrophils % 70.6 % (38.7-73.9); Platelet Count 299 T/CUMM (130-400); Red Cell Distribution Width 20.1 % (9.3-17.3); White Blood Count 8.6 T/CUMM (4-12)
[2020-09-01 06:24] LABS: Calcium 8.7 MG/DL (8.5-10.1); Osmolality,Calculated 278.4 MOS/KG (273-304)
[2020-09-01] MEDS: OMEGA 3 ACID ETHYL ESTERS 1 GM CAPSULE PO SCH (09:32)
[2020-09-01] MEDS: ATORVASTATIN 40 MG TABLET PO SCH (09:33)
[2020-09-01] MEDS: PANTOPRAZOLE 40 MG TABLET PO SCH (09:33)
[2020-09-01] MEDS: APIXABAN 5 MG TABLET PO SCH ×2 (09:33→21:20)
[2020-09-01] MEDS: AMIODARONE 200 MG TABLET PO SCH (09:33)
[2020-09-01] MEDS: CHOLECALCIFEROL 1,000 UNIT TABLET PO SCH (09:33)
[2020-09-01] MEDS: amLODIPine 10 MG TABLET PO SCH (09:33)
[2020-09-01] MEDS: MULTIVITAMIN (OCUVITE) TABLET PO SCH ×2 (09:34→21:20)
[2020-09-01] MEDS: MULTIVITAMIN (BEROCCA) TABLET PO SCH (09:34)
[2020-09-01] MEDS: DILTIAZEM CD 120 MG CAPSULE PO SCH (09:34)
[2020-09-01] MEDS: MULTIVITAMIN (CENTRUM) TABLET PO SCH (09:35)
[2020-09-01] MEDS: FERROUS SULFATE 325 MG TABLET PO SCH (21:20)
[2020-09-01] MEDS: ZALEPLON 5 MG CAPSULE PO PRN (22:36)
[2020-09-02 05:12] LABS: % Iron Saturation 14.3 % (18-50); Calcium 8.7 MG/DL (8.5-10.1); Ferritin 94.2 ng/ml (8-252); Osmolality,Calculated 278.4 MOS/KG (273-304); Potassium 4.1 MMOL/L (3.5-5.1)
[2020-09-02] MEDS: MULTIVITAMIN (CENTRUM) TABLET PO SCH (09:05)
[2020-09-02] MEDS: MULTIVITAMIN (BEROCCA) TABLET PO SCH (09:05)
[2020-09-02] MEDS: MULTIVITAMIN (OCUVITE) TABLET PO SCH ×2 (09:05→21:18)
[2020-09-02] MEDS: FERROUS SULFATE 325 MG TABLET PO SCH ×2 (09:06→21:18)
[2020-09-02] MEDS: OMEGA 3 ACID ETHYL ESTERS 1 GM CAPSULE PO SCH (09:06)
[2020-09-02] MEDS: AMIODARONE 200 MG TABLET PO SCH (09:06)
[2020-09-02] MEDS: ATORVASTATIN 40 MG TABLET PO SCH (09:06)
[2020-09-02] MEDS: DILTIAZEM CD 120 MG CAPSULE PO SCH (09:06)
[2020-09-02] MEDS: PANTOPRAZOLE 40 MG TABLET PO SCH (09:07)
[2020-09-02] MEDS: APIXABAN 5 MG TABLET PO SCH ×2 (09:07→21:18)
[2020-09-02] MEDS: CHOLECALCIFEROL 1,000 UNIT TABLET PO SCH (09:07)
[2020-09-02] MEDS: LOSARTAN 25 MG TABLET PO SCH (09:07)
[2020-09-03] MEDS: MULTIVITAMIN (BEROCCA) TABLET PO SCH (08:55)
[2020-09-03] MEDS: DILTIAZEM CD 120 MG CAPSULE PO SCH (08:55)
[2020-09-03] MEDS: MULTIVITAMIN (OCUVITE) TABLET PO SCH (08:55)
[2020-09-03] MEDS: FERROUS SULFATE 325 MG TABLET PO SCH (08:56)
[2020-09-03] MEDS: AMIODARONE 200 MG TABLET PO SCH (08:56)
[2020-09-03] MEDS: LOSARTAN 25 MG TABLET PO SCH (08:56)
[2020-09-03] MEDS: MULTIVITAMIN (CENTRUM) TABLET PO SCH (08:56)
[2020-09-03] MEDS: APIXABAN 5 MG TABLET PO SCH (08:56)
[2020-09-03] MEDS: ATORVASTATIN 40 MG TABLET PO SCH (08:56)
[2020-09-03] MEDS: CHOLECALCIFEROL 1,000 UNIT TABLET PO SCH (08:57)
[2020-09-03] MEDS: PANTOPRAZOLE 40 MG TABLET PO SCH (08:57)
[2020-09-03] MEDS: OMEGA 3 ACID ETHYL ESTERS 1 GM CAPSULE PO SCH (08:57)
[2020-09-03 11:59] VITALS: BP 116/51
== END 2020-09-03 13:19 | disposition home health service (06) | DRG 243 ==
LOC: N.TELES 10:33 → N.CL 10:33 → N.TELES 17:42
PROVIDERS: ADMIT Internal Medicine Cardiovascular Disease; ATTEND Internal Medicine Cardiovascular Disease
PROC: IRGDHTC (2020-08-28 16:47)

== ENCOUNTER 2021-11-12 13:34 | Inpatient (IN) ==
[2021-11-12] MEDS ORDERED: SODIUM CHLORIDE 0.9% 1,000 ML IV PRN (17:12)
[2021-11-12 18:50] LABS: Basophils # 0.1 10*3/uL (0.0-0.2); Basophils % 0.9 % (0.0-0.8); Eosinophils # 0.3 10*3/uL (0.0-0.87); Eosinophils % 2.6 % (0.00-10.9); Immature Granulocytes % 0.6 %; Immature Granulocytes Absolute 0.06 #; Lymphocytes # 1.7 10*3/uL (1.4-4.0); Mean Corpuscular Volume 79.6 FL (87-102); Mean Platelet Volume 11.9 FL (9.6-12.0); Monocytes # 0.8 10*3/uL (0.11-0.8); Monocytes % 8.1 % (1.7-12.7); Neutrophils % 70.8 % (38.7-73.9); Platelet Count 235 T/CUMM (130-400); Red Blood Count 2.06 MC/CUMM (3.8-5.5); Red Cell Distribution Width 17.3 % (9.3-17.3); White Blood Count 9.9 T/CUMM (4-12)
[2021-11-12 18:53] LABS: Hemoglobin 4.6 GM/DL (12.0-16.0)
[2021-11-12 18:54] LABS: Hematocrit 16.4 VOL% (35.7-47.0)
[2021-11-12 19:08] LABS: Anisocytosis 2+; Hypochromia 2+; Macrocytosis 1+; Microcytosis 1+; Platelet Estimate Adequate; Polychromasia Slight
[2021-11-12 19:29] LABS: Alanine Aminotransferase 18 U/L (13-56); Alkaline Phosphatase 111 U/L (45-117); Aspartate Amino Transferase 15 U/L (0-37); Bilirubin,Total < 0.39 MG/DL (0.20-1.00); Blood Urea Nitrogen 18 MG/DL (7-18); Calcium 8.7 MG/DL (8.5-10.1); Carbon Dioxide 24 MMOL/L (21-32); Chloride 110 MMOL/L (98-107); Glucose 101 MG/DL (74-106); Osmolality,Calculated 282.3 MOS/KG (273-304); Potassium 4.1 MMOL/L (3.5-5.1); Sodium 141 MMOL/L (136-145); Total Protein 5.9 G/DL (6.4-8.2)
[2021-11-12] MEDS ORDERED: ONDANSETRON 4 MG/2 ML VIAL IV PRN (20:21)
[2021-11-12] MEDS ORDERED: ACETAMINOPHEN 325 MG TABLET PO PRN (20:21)
[2021-11-13] MEDS ORDERED: hydrALAZINE 20 MG/1 ML VIAL IV PRN (00:33)
[2021-11-13 05:23] LABS: Basophils # 0.1 10*3/uL (0.0-0.2); Basophils % 1.1 % (0.0-0.8); Eosinophils # 0.3 10*3/uL (0.0-0.87); Eosinophils % 3.5 % (0.00-10.9); Hematocrit 21.6 VOL% (35.7-47.0); Immature Granulocytes % 1.2 %; Lymphocytes # 1.2 10*3/uL (1.4-4.0); Lymphocytes % 14.6 % (21.3-54.2); Mean Corpuscular HGB Conc 29.2 GM/DL (32-36); Mean Corpuscular Volume 78.5 FL (87-102); Mean Platelet Volume 11.7 FL (9.6-12.0); Monocytes # 0.7 10*3/uL (0.11-0.8); Neutrophils % 70.6 % (38.7-73.9); Platelet Count 190 T/CUMM (130-400); Red Blood Count 2.75 MC/CUMM (3.8-5.5); Red Cell Distribution Width 17.9 % (9.3-17.3); White Blood Count 8.1 T/CUMM (4-12)
[2021-11-13 05:30] LABS: Hemoglobin 6.3 GM/DL (12.0-16.0)
[2021-11-13 05:44] LABS: Hypochromia 2+; Platelet Estimate Adequate
[2021-11-13 05:49] LABS: Calcium 8.4 MG/DL (8.5-10.1); Potassium 4.1 MMOL/L (3.5-5.1)
[2021-11-13 06:07] LABS: RBC,Urine 2 /HPF (0-4); Squamous Epithelial Cell,Urine Occasional /HPF (0-10)
[2021-11-13 06:08] LABS: Bilirubin,Urine Negative (Negative); Blood, Urine Negative (Negative); Glucose,Urine (UA) Negative (Negative); Ketones,Urine Negative (Negative); Nitrite,Urine Negative (Negative); Protein,Urine Negative (Negative); Urine Appearance Clear (Clear); Urine Color Yellow (Yellow); Urine Specific Gravity 1.015 (1.001-1.035); Urine Urobilinogen 0.2 eU/dL (<2.0); Urine pH 7.5 (4.5-8.0)
[2021-11-13] MEDS: PANTOPRAZOLE 40 MG VIAL IV SCH (10:01)
[2021-11-13] MEDS: LIDOCAINE 5% PATCH TRANSDERM SCH (10:55)
[2021-11-13] MEDS ORDERED: FUROSEMIDE 20 MG/2 ML VIAL IV ONE (19:50)
[2021-11-13] MEDS ORDERED: LORATADINE 10 MG TABLET PO ONE (19:53)
[2021-11-13] MEDS: FERROUS SULFATE 325 MG TABLET PO SCH (21:09)
[2021-11-13] MEDS: lisinopriL 10 MG TABLET PO SCH (21:09)
[2021-11-13] MEDS: methylPREDNISolone SOD SUC 40 MG/1 ML VIAL IV SCH (21:10)
[2021-11-14 06:29] LABS: Basophils # 0.1 10*3/uL (0.0-0.2); Basophils % 0.5 % (0.0-0.8); Hematocrit 31.3 VOL% (35.7-47.0); Hemoglobin 9.7 GM/DL (12.0-16.0); Immature Granulocytes % 2.9 %; Immature Granulocytes Absolute 0.32 #; Lymphocytes # 0.5 10*3/uL (1.4-4.0); Lymphocytes % 4.6 % (21.3-54.2); Mean Corpuscular Volume 80.7 FL (87-102); Mean Platelet Volume 12.3 FL (9.6-12.0); Monocytes # 0.4 10*3/uL (0.11-0.8); Monocytes % 3.2 % (1.7-12.7); NRBC # 0.04 10*3/uL; Neutrophils % 88.8 % (38.7-73.9); Platelet Count 185 T/CUMM (130-400); Red Blood Count 3.88 MC/CUMM (3.8-5.5); Red Cell Distribution Width 18.6 % (9.3-17.3); White Blood Count 11.1 T/CUMM (4-12)
[2021-11-14 06:51] LABS: Anisocytosis Slight; Band Neutrophils 7 % (0-10); Hypochromia Slight; Lymphocytes 4 % (20-55); Nucleated Red Blood Cells 2 (0-5); Platelet Estimate Normal; Total Cells Counted 100
[2021-11-14 06:54] LABS: Calcium 8.5 MG/DL (8.5-10.1); Osmolality,Calculated 289.7 MOS/KG (273-304); Potassium 3.7 MMOL/L (3.5-5.1)
[2021-11-14] MEDS: LIDOCAINE 5% PATCH TRANSDERM SCH (08:54)
[2021-11-14] MEDS: lisinopriL 10 MG TABLET PO SCH (08:55)
[2021-11-14] MEDS ORDERED: LORATADINE 10 MG TABLET PO SCH (09:00)
[2021-11-14] MEDS: FERROUS SULFATE 325 MG TABLET PO SCH (09:59)
[2021-11-14] MEDS: methylPREDNISolone SOD SUC 40 MG/1 ML VIAL IV SCH (09:59)
[2021-11-14] MEDS: PANTOPRAZOLE 40 MG VIAL IV SCH (09:59)
[2021-11-14 16:45] VITALS: BP 150/66
== END 2021-11-14 16:14 | disposition home or self-care (01) | DRG 378 ==
LOC: N.ED 13:34 → N.EDINP 20:21 → N.TELES 23:16
PROVIDERS: ADMIT Family Medicine; ATTEND Family Medicine